=== PATIENT | male | born 1995 | race Caucasian/White ===

== ENCOUNTER 2020-04-27 22:01 | Emergency (ER) | payer OTHER ==
[~2020-04-27] VITALS: Ht 175.3 cm; Wt 81.6 kg
[2020-04-27 22:10] VITALS: BP_SYST 134
--- NOTE | 2020-04-27 22:10 | NUR ---
Patient to ER bed HALLWAY 1 to gown for evaluation. Side rails up.
--- NOTE | 2020-04-27 22:11 | NUR ---
ER Dr. TOSCANO at bedside examining patient.
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
--- NOTE | 2020-04-27 22:15 | NUR ---
PT TO XRAY DEPT
--- NOTE | 2020-04-27 22:25 | NUR ---
PT BACK FROM XRAY DEPT
[2020-04-27 22:47] VITALS: BP_SYST 134
--- NOTE | 2020-04-27 22:48 | NUR ---
Patient given written and verbal discharge instructions and verbalizes understanding. DR. DORCAS RAUSCH MD discussed with patient the results and treatment provided. Patient in stable condition. ID arm band removed. Patient educated on pain management and to follow up with PMD. Pain Scale 0/10. Opportunity for questions provided and answered.
== END 2020-04-27 22:47 | disposition home or self-care (01) ==
LOC: SED 22:01
DX: M79.644 Pain in right finger(s) (principal)
CPT/HCPCS: 73140-TC; 99283